=== PATIENT | female | born 1980 | race Caucasian/White ===

== ENCOUNTER 2018-03-27 05:40 | Day surgery (SDC) | payer OTHER ==
[~2018-03-27] VITALS: Ht 177.8 cm; Wt 72.6 kg
[~2018-03-27 05:40] MED LIST: BIOTIN1000 MICRO PO; COSENTYX P150 MG/11 SC; CYCLOBENZAPRINE5 MG PO; ELAVIL10 MG PO; STELARA45 MG/0.1 SC
[2018-03-27 06:32] VITALS: BP 116/75
[2018-03-27] MEDS ORDERED: IBUPROFEN800 MG PO (10:23)
[2018-03-27] MEDS ORDERED: ENDOCET 5-3251 EACH PO (10:23)
[2018-03-27 11:57] VITALS: BP 149/76
[2018-03-27 13:00] VITALS: BP 134/80
[2018-03-27 14:57] VITALS: BP 121/69
== END 2018-03-27 15:22 | disposition home or self-care (01) ==
LOC: SDC 05:40
PROC: 0UT94ZZ Resection of Uterus, Percutaneous Endoscopic Approach (ICD-10-PCS; principal; 2018-03-27)
PROC: 04L Lower Arteries, Occlusion (ICD-10-PCS; principal; 2018-03-27)
PROC: 0UT74ZZ Resection of Bilateral Fallopian Tubes, Percutaneous Endoscopic Approach (ICD-10-PCS; principal; 2018-03-27)
DX: N80.0 Endometriosis of uterus (principal); N83.8 Other noninflammatory disorders of ovary, fallopian tube and broad ligament; K66.0 Peritoneal adhesions (postprocedural) (postinfection); N92.0 Excessive and frequent menstruation with regular cycle; M79.7 Fibromyalgia; D50.0 Iron deficiency anemia secondary to blood loss (chronic); L40.50 Arthropathic psoriasis, unspecified
CPT/HCPCS: 88307; J0330; J0690; J1100; J1170; J1885; J2250; J2405; J2710; J3010; J7643; Q0175